=== PATIENT | female | born 2000 | race African-American/Black ===

== ENCOUNTER 2018-05-19 11:32 | Emergency (ER) | payer MEDICAID ==
[~2018-05-19] VITALS: Ht 160 cm; Wt 59.0 kg
[2018-05-19 11:34] VITALS: BP 118/65
--- NOTE | 2018-05-19 11:42 | NUR ---
PATIENT AMBULATED TO BED 5 AT THIS TIME.
--- NOTE | 2018-05-19 11:45 | NUR ---
PATIENT PRESENTS TO ED WITH THE CHIEF C/O SIDE AND LOWER ABDOMINAL PAIN FOR A WEEK. PT STATES SHE WAS HERE IN MARCH: DIAGNOSED WITH UTI BUT DID NOT TAKE PRESCRIBED MEDICINE. DENIES N/V/D; SKIN IS PINK/WARM/DRY; AAOX4 WITH EVEN AND STEADY GAIT; LUNGS CLEAR BL; HR EVEN AND REGULAR; PT DENIES ANY FEVER, CP, SOB, OR COUGH AT THIS TIME; PATIENT STATES PAIN OF 8/10 AT THIS TIME; VSS; PATIENT POSITIONED FOR COMFORT; HOB ELEVATED; BEDRAILS UP X2; BED DOWN. ER MD MADE AWARE OF PT STATUS.
[2018-05-19] MEDS ORDERED: KETOROLAC 60 MG/2 ML VIAL IM ONE (11:50)
--- NOTE | 2018-05-19 12:32 | NUR ---
Patient discharged with v/s stable. Written and verbal after care instructions given and explained. Patient alert, oriented and verbalized understanding of instructions. Ambulatory with steady gait. All questions addressed prior to discharge. ID band removed. Patient advised to follow up with PMD. Rx of MOTRIN AND NORCO given. Patient educated on indication of medication including possible reaction and side effects. Opportunity to ask questions provided and answered.
[2018-05-19 12:33] VITALS: BP 100/54
== END 2018-05-19 12:32 | disposition home or self-care (01) ==
LOC: MED 11:32
DX: R10.30 Lower abdominal pain, unspecified (principal)
CPT/HCPCS: 81002; 81025; 96372; 99283; J1885